=== PATIENT | female | born 1945 | race Caucasian/White ===

== ENCOUNTER 2018-08-22 18:08 | Emergency (ER) | payer OTHER, MEDICARE ==
[2018-08-22] MEDS ORDERED: Sodium Chloride 0.9% 1,000 ML IV ONE (19:41)
[2018-08-22] MEDS ORDERED: Prochlorperazine 10 MG/2 ML SDV IVPUSH ONE (19:41)
[2018-08-22] MEDS ORDERED: Sodium Chloride 0.9% 100 ML IV ONE (19:49)
[2018-08-22] MEDS ORDERED: Iopamidol 612 MG/ML 100 ML Bottle IV SCH (20:00)
--- NOTE | 2018-08-22 20:46 | CRLCT ---
INDICATION: Abdominal pain and bloating. TECHNIQUE: 3 mm axial imaging has been performed through the abdomen and pelvis after nonionic IV contrast. Sagittal and coronal reconstructions have been obtained. FINDINGS: Lung bases are free of significant infiltrate. Mildly prominent interstitial markings are noted. The enhancement of the liver demonstrates a small sub cm benign hypodensity anteriorly within the left lobe. No suspicious masses are seen. Patient is status post cholecystectomy. The extrahepatic bile duct is mildly prominent but no filling defect is noted. This is likely related to a reservoir effect. Spleen, pancreas, bilateral adrenal glands are within normal limits. The kidneys demonstrate symmetric enhancement bilaterally. No hydronephrosis is seen. No ureteric stones are seen. Wide-mouth anterior abdominal wall hernia is identified with fat present. Fluid filled nondistended small bowel loops are noted. Air and retained stool noted within the colon. No findings to suggest high-grade bowel obstruction. Scattered diverticular changes of the distal colon are identified without evidence for diverticulitis. Uterus is near the midline. There are no suspicious adnexal masses. No significant free fluid is seen. IMPRESSION: 1. No evidence for high-grade bowel obstruction. Some fluid filled nondistended small bowel loops noted. Gas and retained stool noted within the colon. This can be followed to the rectosigmoid region. 2. The upper abdominal organ survey is unremarkable. Small hypodensity within the anterior left lobe of liver noted. Patient is status post cholecystectomy. 3. Anterior abdominal wall hernia is identified with fat present. 4. No free air is noted. No abscess is noted. No significant free fluid is seen. Please note that all CT scans at this facility use dose modulation, iterative reconstruction, and/or weight-based dosing when appropriate to reduce radiation dose to as low as reasonably achievable. Dictated by Brett Dangelo MD @ Aug 22 2018 8:37PM Signed by Dr. Brett Dangelo @ Aug 22 2018 8:45PM
[2018-08-22] MEDS ORDERED: Simethicone 80 MG Tab.Chew PO ONE (21:52)
--- NOTE | 2018-08-22 21:57 | EDM.PDOC ---
ED HPI GENERAL MEDICAL PROBLEM - General Chief Complaint: Abdominal Pain Stated Complaint: Abdominal pain Time Seen by Provider: 08/22/18 18:48 Source of Information: Reports: Patient History Limitations: Reports: No Limitations - History of Present Illness INITIAL COMMENTS - FREE TEXT/NARRATIVE: This patient complains of being sick for about one week. She started off with some lower abdominal pain. She saw her doctor and her urine was clear but she seemed to be having UTI symptoms so her doctor put her on some Macrobid. She is becoming more and more bloated in calving generalized abdominal pain. Today it was much worse. She had some nausea and aVF touch of vomiting. There's been no fever although she complains of being hot and cold. She has diverticulosis but never diverticulitis. She's had a cholecystectomy appendectomy and abdominal hernia. 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: Musculoskeletal History: Reports: Fracture - Past Surgical History HEENT Surgical History: Reports: Adenoidectomy, Tonsillectomy GI Surgical History: Reports: Appendectomy, Cholecystectomy, Colonoscopy, Hernia , Abdominal Social & Family History - Tobacco Use Smoking Status *Q: Never Smoker - Caffeine Use Caffeine Use: Reports: None - Recreational Drug Use Recreational Drug Use: No ED ROS GENERAL - Review of Systems Review Of Systems: See Below Constitutional: Reports: Chills HEENT: Reports: No Symptoms Respiratory: Reports: No Symptoms Cardiovascular: Reports: No Symptoms Endocrine: Reports: No Symptoms GI/Abdominal: Reports: Abdominal Pain, Distension Musculoskeletal: Reports: No Symptoms Skin: Reports: No Symptoms Neurological: Reports: No Symptoms Psychiatric: Reports: No Symptoms Hematologic/Lymphatic: Reports: No Symptoms ED EXAM, GI/ABD - Physical Exam Exam: See Below Exam Limited By: No Limitations General Appearance: Alert, WD/WN, Mild Distress Eyes: Bilateral: Normal Appearance Respiratory/Chest: Lungs Clear Cardiovascular: Regular Rate, Rhythm GI/Abdominal Exam: Other (Hypoactive bowel sounds. Abdomen a little bit distended with gas but definitely not tympanitic. Nontender.) Back Exam: Normal Inspection Extremities: Normal Inspection Neurological: Alert, Oriented Psychiatric: Normal Affect Skin Exam: Warm, Dry Course - Vital Signs Last Recorded V/S: Last Vital Signs Temp 37.8 C 08/22/18 20:23 Pulse 85 08/22/18 20:23 Resp 18 08/22/18 20:23 BP 132/86 08/22/18 20:23 Pulse Ox 95 08/22/18 20:23 - Orders/Labs/Meds Orders: Active Orders 24 hr Category Date Time Status Iopamidol [Isovue-300 (61%)] Med 08/22/18 20:00 Active 100 ml IV . DIRECTED Medication Orders Iopamidol (Isovue-300 (61%)) 100 ml IV . DIRECTED RIGO Last Admin: 08/22/18 20:35 Dose: 100 ml Labs: Laboratory Tests 08/22/18 08/22/18 08/22/18 Range/Units 19:40 19:40 20:14 WBC 15.6 H (4.5-11.0) K/uL RBC 4.61 (3.30-5.50) M/uL Hgb 14.4 (12.0-15.0) g/dL Hct 43.2 (36.0-48.0) % MCV 94 (80-98) fL MCH 31 (27-31) pg MCHC 33 (32-36) % Plt Count 242 (150-400) K/uL Neut % (Auto) 87 H (36-66) % Lymph % (Auto) 4 L (24-44) % [place] % (Auto) 8 H (2-6) % Eos % (Auto) 2 (2-4) % Baso % (Auto) 0 (0-1) % Sodium 138 L (140-148) mmol/L Potassium 3.5 L (3.6-5.2) mmol/L Chloride 102 (100-108) mmol/L Carbon Dioxide 29 (21-32) mmol/L Anion Gap 10.5 (5.0-14.0) mmol/L BUN 14 (7-18) mg/dL Creatinine 0.7 (0.6-1.0) mg/dL Est Cr Clr Drug Dosing 65.01 mL/min Estimated GFR (MDRD) > 60 (>60) Glucose 128 H (74-106) mg/dL Calcium 8.9 (8.5-10.1) mg/dL Total Bilirubin 0.7 (0.2-1.0) mg/dL AST 16 (15-37) U/L ALT 6 L (12-78) U/L Alkaline Phosphatase 67 (46-116) U/L Total Protein 6.9 (6.4-8.2) g/dL Albumin 3.3 L (3.4-5.0) g/dL Globulin 3.6 H (2.3-3.5) g/dL Albumin/Globulin Ratio 0.9 L (1.2-2.2) Urine Color Yellow Urine Appearance Slightly cloudy Urine pH 7.0 (4.5-8.0) Ur Specific [place] 1.015 (1.008-1.030) Urine Protein Negative (NEGATIVE) mg/dL Urine Glucose (UA) Normal (NEGATIVE) mg/dL Urine Ketones Negative (NEGATIVE) mg/dL Urine Occult Blood Trace (NEGATIVE) Urine Nitrite Negative (NEGATIVE) Urine Bilirubin Negative (NEGATIVE) Urine Urobilinogen Normal (NORMAL) mg/dL Ur Leukocyte Esterase Trace (NEGATIVE) Urine RBC 5-10 H (0-5) Urine WBC 0-5 (0-5) Ur Epithelial Cells Rare Amorphous Sediment Not seen Urine Bacteria Rare Urine Mucus Many Meds: Medications Generic Name Dose Route Start Last Admin Trade Name Freq PRN Reason Stop Dose Admin Iopamidol 100 ml 08/22/18 20:00 08/22/18 20:35 Isovue-300 (61%) IV 100 ml . DIRECTED RIGO Administration Discontinued Medications Generic Name Dose Route Start Last Admin Trade Name Freq PRN Reason Stop Dose Admin Sodium Chloride 1,000 mls @ 999 mls/hr 08/22/18 19:41 08/22/18 20:06 Normal Saline IV 08/22/18 20:41 999 mls/hr .BOLUS ONE Administration Sodium Chloride 100 mls @ 3 mls/sec 08/22/18 19:49 08/22/18 20:35 Normal Saline IV 08/22/18 19:50 3 mls/sec ONETIME ONE Administration Prochlorperazine Edisylate 5 mg 08/22/18 19:41 08/22/18 20:08 Compazine IVPUSH 08/22/18 19:42 5 mg ONETIME ONE Administration - Radiology Interpretation Free Text/Narrative:: Abdominal CT did not show diverticulitis or any kind of high-grade obstruction. There was significant amount of fluid filled nondistended small bowel loops that there was gas and retains stool noted within the colon but not very much. They could be followed all the way to the rectosigmoid region. - Re-Assessments/Exams Free Text/Narrative Re-Assessment/Exam: 08/22/18 21:56 Labs were reviewed. Noted mild increased WBCs. Not however convincing for sepsis. Small amount of microhematuria. Temperature noted patient questioned whether the Macrobid could be causing all the gas and bloating and distention. Assessment does not know enough about that antibiotic to tell her that the medications affect people differently so it didn't symptoms did start after she began that medication so be best to stop it and she doesn't needed either Departure - Departure Time of Disposition: 21:57 Disposition: Home, Self-Care 01 Condition: Fair Clinical Impression: Abdominal pain, Microhematuria, Colon distention - Discharge Information Referrals: PCP,None [Primary Care Provider] - Additional Instructions: Stop taking the nitrofurantoin. The urine does not look infected although there is a little bit of blood in the urine. You'll need to see your Dr. in the near future to make sure that blood goes away or someone may need to take a look at your bladder. To help with the gas try using simethicone or Gas-X. Don't use anything more than Tylenol for pain and fever. If you're getting worse return to the ER otherwise follow-up with your Dr. in a few days. - My Orders Last 24 Hours: My Active Orders 08/22/18 20:00 Iopamidol [Isovue-300 (61%)] 100 ml IV . DIRECTED - Assessment/Plan Last 24 Hours: My Active Orders 08/22/18 20:00 Iopamidol [Isovue-300 (61%)] 100 ml IV . DIRECTED
== END 2018-08-22 22:17 | disposition home or self-care (01) ==
LOC: JP.ED 18:08
DX: K63.89 Other specified diseases of intestine (principal); R10.30 Lower abdominal pain, unspecified; R31.29 Other microscopic hematuria; I10 Essential (primary) hypertension; Z90.49 Acquired absence of other specified parts of digestive tract; Z79.899 Other long term (current) drug therapy; Z98.890 Other specified postprocedural states
CPT/HCPCS: 36415; 74177; 80053; 81001; 85025; 96361; 96374; 99284; A9270; J0780; J7030; Q9967; 99283